=== PATIENT | male | born 1980 | race Caucasian/White ===

== ENCOUNTER 2017-12-11 10:40 | Emergency (ER) | payer SELFPAY ==
[~2017-12-11] VITALS: Ht 172.7 cm; Wt 65.0 kg
[2017-12-11 10:50] VITALS: BP 130/92
== END 2017-12-11 11:29 | disposition home or self-care (01) ==
LOC: ED 11:20
DX: H65.01 Acute serous otitis media, right ear (principal); K11.21 Acute sialoadenitis
CPT/HCPCS: 99283